=== PATIENT | female | born 1950 | race Caucasian/White ===

== ENCOUNTER 2018-04-04 02:32 | Emergency (ER) | payer MEDICARE, OTHER ==
[~2018-04-04] VITALS: Ht 170.2 cm; Wt 74.8 kg
[2018-04-04] MEDS ORDERED: IV NORMAL SALINE 1000ML BAG 1,000 ML IV ONE (04:00)
[2018-04-04] MEDS ORDERED: ONDANSETRON PF 4 MG/2 ML VIAL. IV ONE ×2 (04:00)
[2018-04-04] MEDS ORDERED: fentaNYL PF VIAL 100 MCG/2 ML VIAL IV ONE (04:30)
--- NOTE | 2018-04-04 04:32 | PHYS DOC ---
Past Medical History Past Medical History: Anxiety, Hypertension, Hypothyroid Past Surgical History: Tonsillectomy, Other Additional Past Surgical Histo: RIGHT THUMB Alcohol Use: None Drug Use: None Adult General Chief Complaint Chief Complaint: MECHANICAL FALL HPI HPI Patient is a 68 year old female with history of hypertension, and anxiety presents with accidental fall from standing. Patient is currently visiting from [place] and living with her daughter. She accidentally fell this evening well attempted to plug-in wall game trapper in a dark room. Patient fell towards onto her side striking her face on to a door knob. No reported loss of consciousness., Neck pain. Patient denies medical symptoms prior to fall. Specifically, the patient denies chest pain, palpitations, shortness of breath. No other acute symptoms or complaints [] Review of Systems Review of Systems Review symptoms as per history of present illness. All other review symptoms are negative All other systems were reviewed and found to be within normal limits, except as documented in this note. Current Medications Current Medications Current Medications Medications (Trade) Dose Ordered Sig/John Start Time Stop Time Status Last Admin Dose Admin Fentanyl Citrate (Fentanyl 2ml Vial) 50 mcg 1X ONCE 04/04/18 04:30 04/04/18 04:31 Ondansetron HCl (Zofran) 4 mg 1X ONCE 04/04/18 04:00 04/04/18 04:01 DC Sodium Chloride 1,000 ml @ 1,000 mls/hr 1X ONCE 04/04/18 04:00 04/04/18 04:59 Allergies Allergies Allergies Coded Allergies Type Severity Reaction Last Updated Verified No Known Drug Allergies 04/04/18 No Physical Exam Physical Exam Constitutional: Well developed, well nourished, anxious, tearful. [] HENT: Normocephalic, atraumatic, bilateral external ears normal, oropharynx moist, no oral exudates, nose, no deformity, dried blood to the nares. [] Eyes: PERRLA, EOMI, conjunctiva normal, no discharge. [] Neck: Normal range of motion, no tenderness, supple, no stridor. [] Cardiovascular:Heart rate regular rhythm, no murmur [] Lungs & Thorax: Bilateral breath sounds clear to auscultation [] Abdomen: Bowel sounds normal, soft, no tenderness. [] Skin: Warm, dry, no erythema. [] Back: No tenderness. [] Extremities: No tenderness. [] Neurologic: Alert and oriented X 3, normal motor function, normal sensory function, no focal deficits noted. [] Current Patient Data Vital Signs Vital Signs Date Time Temp Pulse Resp B/P (MAP) Pulse Ox O2 Delivery O2 Flow Rate FiO2 04/04/18 02:32 97.8 70 18 129/66 (87) 100 Room Air 97.8 Lab Values Laboratory Tests Test 04/04/18 03:07 Glucose (Fingerstick) 120 mg/dL (70-99) H EKG EKG [EKG: Reviewed] Radiology/Procedures Radiology/Procedures [CT head/cervical spine/thoracic/lumbar spine:] Course & Med Decision Making Course & Med Decision Making Pertinent Labs and Imaging studies reviewed. (See chart for details) [Patient with accidental fall with increased anxiety, secondary to pain related injuries. Patient does not appear to be in any acute distress. We will obtain basic imaging studies and labs.Anticipate discharge home pending further review and treatment.] Dragon Disclaimer Dragon Disclaimer This electronic medical record was generated, in whole or in part, using a voice recognition dictation system. Departure Departure Impression: Primary Impression: Head injury Additional Impression: Back pain Disposition: HOME, SELF-CARE Condition: GOOD Problem Qualifiers GUTIERREZ JUNG DO Apr 04, 2018 04:32
[2018-04-04 04:37] LABS: BASO % 1 % (0-3); EOS # 0.2 x10^3/uL (0.0-0.7); EOS % 3 % (0-3); HEMOGLOBIN 12.6 g/dL (12.0-15.5); LYMPH # 1.8 x10^3/uL (1.0-4.8); LYMPH % 21 % (24-48); MEAN CORPUSCULAR HEMOGLOBIN 32 pg (25-35); MEAN CORPUSCULAR HGB CONC 35 g/dL (31-37); MEAN CORPUSCULAR VOLUME 92 fL (79-100); MONO # 0.5 x10^3/uL (0.0-1.1); MONO % 6 % (0-9); NEUT # 5.8 x10^3uL (1.8-7.7); NEUT % 69 % (31-73); PLATELET COUNT 201 x10^3/uL (140-400); RED BLOOD COUNT 3.93 x10^6/uL (3.50-5.40); RED CELL DISTRIBUTION WIDTH 12.9 % (11.5-14.5); WHITE BLOOD COUNT 8.4 x10^3/uL (4.0-11.0)
[2018-04-04 04:44] LABS: CALCIUM 9.7 mg/dL (8.5-10.1); CREATININE 1.1 mg/dL (0.6-1.0); GFR 49.5; POTASSIUM 3.5 mmol/L (3.5-5.1)
[2018-04-04 04:50] LABS: ALBUMIN 3.7 g/dL (3.4-5.0); TOTAL BILIRUBIN 0.8 mg/dL (0.2-1.0); TOTAL PROTEIN 7.4 g/dL (6.4-8.2)
--- NOTE | 2018-04-04 05:16 | RAD ---
CT head without contrast: Reason for examination: Fell tonight with head, neck and back pain. Axial images were obtained through the brain. No contrast was administered. Ventricular systems are symmetric and not abnormally dilated. 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 No midline shift is seen. There is no evidence of intracranial hemorrhage, infarct mass or edema. Basal ganglia calcification is seen bilaterally. No abnormalities are seen at the orbits. The paranasal sinuses show some mild mucosal disease in a few the ethmoid sinuses. Mastoid air cells are clear. No acute abnormality seen in the skull. IMPRESSION: No acute intracranial abnormality evident. CT cervical spine without contrast: Helical images were obtained through the cervical spine from skull base through the thoracic apices. Reconstruction was performed in sagittal and coronal planes. No contrast was administered. The C1 ring is intact. The odontoid process is intact and normally centered between the lateral masses of C1. The cervical vertebral bodies are normally aligned anteriorly and posteriorly with no acute fracture or subluxation seen. There is degenerative spondylosis from C4 through C7 with moderate spinal stenosis at the C5-6 and C6-7 disc levels. Prevertebral soft tissues are normal. IMPRESSION: No acute abnormality in the cervical spine. Degenerative spondylosis from C4 through C7 with moderate spinal stenosis at the C5-6 and C6-[address] thoracic spine without contrast: Helical images were obtained through the thoracic spine with no contrast administered. Reconstruction was performed in sagittal and coronal planes. The thoracic vertebral bodies are normally aligned anteriorly and posteriorly. No acute fracture or subluxation is seen. There are hypertrophic changes present in the thoracic spine from T6 through T12. The intervertebral discs however fairly well-maintained. No significant spinal stenosis is seen. IMPRESSION: Hypertrophic changes from T6 to T12. No acute abnormality in the thoracic spine. CT lumbar spine without contrast: Helical images were obtained through the lumbar spine with no contrast administered. Reconstruction was performed in sagittal and coronal planes. No acute fracture is seen. There is however a grade 1 anterolisthesis of L4 on L5. The remaining vertebral bodies are normally aligned posterior elements appear to be intact. No gross bony abnormality seen in the sacrum. With the hypertrophic changes in the facet joints at the L4-5 level and with the grade 1 anterolisthesis of L4 on L5, there is severe stenosis of the spinal canal, lateral recesses and neural foramen. There are degenerative changes in the disks with vacuum disc phenomena at the L2-3, L3-4 and L4-5 disc levels. IMPRESSION: No acute abnormality with lumbar spine. Grade 1 anterolisthesis of L4 on L5 with facet hypertrophy which together cause severe spinal stenosis at the L4-5 disc level. Degenerative discs with vacuum disc phenomenon at the L2-3, L3-4 and L4-5 disc levels. Exposure: One or more of the following individualized dose reduction techniques were utilized for this examination: 1. Automated exposure control 2. Adjustment of the mA and/or kV according to patient size 3. Use of iterative reconstruction technique. Electronically signed by: Sara Stovall MD (04/04/2018 5:13 AM) [facility]
[2018-04-04] MEDS ORDERED: TRAM50TA PO (05:29)
[2018-04-04 05:30] VITALS: BP 114/95
[2018-04-04] MEDS ORDERED: KETOROLAC 15 MG/ML VIAL. IV ONE (05:45)
== END 2018-04-04 05:55 | disposition home or self-care (01) ==
LOC: ER 02:32
DX: S09.90XA Unspecified injury of head, initial encounter (principal); M54.5 Low back pain; M54.6 Pain in thoracic spine; M54.2 Cervicalgia; F41.9 Anxiety disorder, unspecified; I10 Essential (primary) hypertension; E03.9 Hypothyroidism, unspecified; W18.09XA Striking against other object with subsequent fall, initial encounter; Y93.89 Activity, other specified; Y92.89 Other specified places as the place of occurrence of the external cause; Y99.8 Other external cause status
CPT/HCPCS: 36415; 70450; 72125; 72128; 72131; 80053; 82962; 83690; 85025; 96374; 96375; 99285; J1885; J2405; J3010; J7030